=== PATIENT | female | born 1960 | race Two or more races ===

== ENCOUNTER 2018-05-25 09:32 | Outpatient (CLI) | payer OTHER | END 2018-05-25 09:47 | disposition home or self-care (01) | LOC: LAB 09:32 | DX: I10 Essential (primary) hypertension (principal); N39.0 Urinary tract infection, site not specified; M81.0 Age-related osteoporosis without current pathological fracture; Z12.11 Encounter for screening for malignant neoplasm of colon; Z12.31 Encounter for screening mammogram for malignant neoplasm of breast; E78.89 Other lipoprotein metabolism disorders; E03.8 Other specified hypothyroidism ==

== ENCOUNTER 2023-01-28 16:15 | Emergency (ER) | payer OTHER ==
[~2023-01-28] VITALS: Ht 170.2 cm; Wt 79.8 kg
[2023-01-28 19:32] LABS: HEMATOCRIT 37.1 % (36.0-45.00); HEMOGLOBIN 12.4 g/dL (12.0-15.00); MEAN CELL VOLUME 86.9 fL (80.00-100.00); MEAN CORPUSCULAR HEMOGLOBIN 29.1 pg (27.00-32.0); MEAN CORPUSCULAR HGB CONC 33.5 g/dl (32.0-36.0); PLATELET COUNT 223 K/uL (150-450); RED BLOOD COUNT 4.27 M/uL (4.00-6.00); RED CELL DISTRIBUTION WIDTH 14.2 % (11.5-14.5)
[2023-01-28 19:49] LABS: CALCIUM 9.3 mg/dL (8.5-10.1); CREATININE SERUM 0.81 mg/dL (0.55-1.02); GFR 71.18; POTASSIUM 4.51 mEq/L (3.5-5.1)
== END 2023-01-28 20:19 | disposition home or self-care (01) ==
LOC: ER
PROVIDERS: General Practice
DX: R07.89 Other chest pain (principal)

== ENCOUNTER 2024-02-16 14:44 | Emergency (ER) | payer OTHER ==
[~2024-02-16] VITALS: Ht 170.2 cm; Wt 79.8 kg
[2024-02-16] MEDS ORDERED: SIMVASTATIN20 MG PO (15:21)
[2024-02-16] MEDS ORDERED: DEXAMETHASONE SODIUM PHOSPHATE 4 MG/ML VIAL IM ONE (16:30)
[2024-02-16] MEDS ORDERED: ACETAMINOPHEN 500 MG GEL..CAP PO ONE (16:30)
[2024-02-16 17:18] LABS: HEMATOCRIT 36.5 % (36.0-45.00); HEMOGLOBIN 12.7 g/dL (12.0-15.00); MEAN CORPUSCULAR HEMOGLOBIN 29.6 pg (27.00-32.0); MEAN CORPUSCULAR HGB CONC 34.8 g/dl (32.0-36.0); PLATELET COUNT 215 K/uL (150-450); RED BLOOD COUNT 4.29 M/uL (4.00-6.00); RED CELL DISTRIBUTION WIDTH 13.9 % (11.5-14.5)
[2024-02-16 17:45] LABS: ALBUMIN 3.8 gm/dL (3.4-5.0); BILIRUBIN TOTAL 0.64 mg/dL (0.3-1.2); CALCIUM 9.1 mg/dL (8.5-10.1); CREATININE SERUM 0.7 mg/dL (0.55-1.02); GFR 83.98; GLOBULINA 3.8 G/DL (2.4-3.5); POTASSIUM 3.52 mEq/L (3.5-5.1); TOTAL PROTEIN 7.6 gm/dL (6.4-8.2)
[2024-02-16 18:02] LABS: URINE APPEARANCE Clear; URINE BILIRRUBIN Negative (NEGATIVE); URINE BLOOD Trace; URINE COLOR Yellow; URINE GLUCOSE Negative (NEGATIVE); URINE KETONE Trace (NEGATIVE); URINE LEUKOCYTE Large; URINE NITRATE Negative; URINE PROTEIN Trace (NEGATIVE); URINE UROBILINOGEN 0.2 E.U./dl
[2024-02-16 18:05] LABS: URINE BACTERIA 104.5 uL (0.0-1933); URINE CAST 4.58 uL (0.0-1.40); URINE EPITHELIAL CELLS 50.5 uL (0.0-38.8); URINE RBC 19.8 uL (0.0-20.8); URINE WBC 454.2 uL (0.0-23.2)
[2024-02-16 18:20] LABS: URINE CRYSTALS FEW /HPF; URINE MUCUS HEAVY
[2024-02-16] MEDS ORDERED: BACTRIM DS TAB1 EACH PO (18:29)
== END 2024-02-16 18:31 | disposition home or self-care (01) ==
LOC: ER 14:44
PROVIDERS: General Practice
DX: R53.1 Weakness (principal); N39.0 Urinary tract infection, site not specified; J00 Acute nasopharyngitis [common cold]; Z20.822 Contact with and (suspected) exposure to COVID-19